=== PATIENT | male | born 1975 | race Caucasian/White ===

== ENCOUNTER 2019-12-28 14:54 | Emergency (ER) | payer OTHER ==
[~2019-12-28 14:54] MED LIST: ZANTAC150 MG PO
[2019-12-28 15:21] LABS: BASO % 0.4 % (0.0-1.0); EOS # 0.3 10*3/uL (0.0-0.4); EOS % 4.4 % (1.0-4.0); HEMATOCRIT 50.9 % (42.0-52.0); LYMPH # 1.6 10*3/uL (1.3-4.4); MEAN CELL VOLUME 82.4 fl (80.0-94.0); MEAN CORPUSCULAR HGB 26.5 pg (27.0-31.0); MEAN CORPUSCULAR HGB CONC 32.2 g/dl (33.0-37.0); MEAN PLATELET VOLUME 8.9 fl (9.6-12.3); MONO # 0.4 10*3/uL (0.1-1.0); MONO % 4.9 % (3.0-9.0); NEUT # 5.2 10*3/uL (2.3-7.9); NEUT % 68.8 % (47.0-73.0); PLATELET COUNT AUTOMATED 267 10*3/uL (130-400); RED BLOOD COUNT 6.18 10*6/uL (4.50-5.90); RED CELL DISTRI WIDTH 12.5 % (0-14.5); WHITE BLOOD COUNT 7.6 10*3/uL (4.8-10.8)
[2019-12-28 15:39] LABS: BUN 13 mg/dl (7-24); CHLORIDE 105 mmol/L (98-107); CREATININE 1.16 mg/dL (0.70-1.30); POTASSIUM 3.8 mmol/L (3.5-5.1); SODIUM 140 mmol/L (136-145)
[2019-12-28] MEDS ORDERED: CLARITIN10 MG PO (16:26)
[2019-12-28] MEDS ORDERED: PEPCID20 MG PO (16:26)
[2019-12-28] MEDS ORDERED: MEDROL DOSEPAK4 MG PO (16:26)
[2019-12-28] MEDS ORDERED: EPIPEN 2-P0.3 MG/0.3 IJ (16:27)
== END 2019-12-28 16:39 | disposition home or self-care (01) ==
LOC: ED 14:54
PROVIDERS: Emergency Medicine
DX: T63.481A Toxic effect of venom of other arthropod, accidental (unintentional), initial encounter (principal); T78.2XXA Anaphylactic shock, unspecified, initial encounter; X58.XXXA Exposure to other specified factors, initial encounter

== ENCOUNTER 2020-04-13 21:23 | Observation (INO) | payer OTHER ==
[~2020-04-13] VITALS: Ht 175.3 cm; Wt 92.2 kg
[~2020-04-13 21:23] MED LIST changes: +CLARITIN10 MG PO; +EPIPEN 2-P0.3 MG/0.3 IJ; +MEDROL DOSEPAK4 MG PO; +PEPCID20 MG PO
[2020-04-13 21:47] VITALS: BP 148/105
[2020-04-13] MEDS ORDERED: SIMVASTATIN40 MG PO (21:48)
[2020-04-13] MEDS ORDERED: LISINOPRIL5 MG PO (21:48)
[2020-04-13 21:51] VITALS: BP 153/98
[2020-04-13 21:59] LABS: BASO # 0.1 10*3/uL (0.0-0.1); BASO % 0.7 % (0.0-1.0); EOS # 0.6 10*3/uL (0.0-0.4); EOS % 5.4 % (1.0-4.0); HEMATOCRIT 53.6 % (42.0-52.0); LYMPH # 2.5 10*3/uL (1.3-4.4); LYMPH % 24.6 % (27.0-41.0); MEAN CORPUSCULAR HGB 27.2 pg (27.0-31.0); MEAN CORPUSCULAR HGB CONC 32.8 g/dl (33.0-37.0); MEAN PLATELET VOLUME 8.7 fl (9.6-12.3); MONO # 0.7 10*3/uL (0.1-1.0); MONO % 6.4 % (3.0-9.0); NEUT # 6.4 10*3/uL (2.3-7.9); NEUT % 62.4 % (47.0-73.0); PLATELET COUNT AUTOMATED 292 10*3/uL (130-400); RED BLOOD COUNT 6.46 10*6/uL (4.50-5.90); RED CELL DISTRI WIDTH 12.8 % (0-14.5); WHITE BLOOD COUNT 10.3 10*3/uL (4.8-10.8)
[2020-04-13 22:10] LABS: ACT PARTIAL THROMBO TIME 29.1 SECONDS (20.0-32.1)
[2020-04-13 22:16] LABS: ALKALINE PHOSPHATASE 77 U/L (45-117); BUN 17 mg/dl (7-24); CHLORIDE 101 mmol/L (98-107); CREATININE 1.18 mg/dL (0.70-1.30); POTASSIUM 3.9 mmol/L (3.5-5.1); SGOT/AST 33 IU/L (3-35); SGPT/ALT 61 U/L (12-78); SODIUM 136 mmol/L (136-145); TOTAL PROTEIN 8.3 gm/dL (6.4-8.2)
[2020-04-13 22:19] LABS: TROPONIN I < 0.015 ng/ml (<0.045)
[2020-04-14 01:01] VITALS: BP 138/89
[2020-04-14 02:00] VITALS: BP 155/97
[2020-04-14 08:00] VITALS: BP 144/90
[2020-04-14 16:00] VITALS: BP 133/67
== END 2020-04-14 16:45 | disposition home or self-care (01) ==
LOC: ED 21:23 → EDHOLD 23:10 → 5E 04-14 00:42
PROVIDERS: Emergency Medicine; ADMIT Internal Medicine; ATTEND Internal Medicine
DX: R07.89 Other chest pain (principal); I10 Essential (primary) hypertension; E78.2 Mixed hyperlipidemia; E78.00 Pure hypercholesterolemia, unspecified; R10.13 Epigastric pain; E66.3 Overweight; Z68.29 Body mass index [BMI] 29.0-29.9, adult; Z98.890 Other specified postprocedural states

== ENCOUNTER 2022-11-09 11:02 | Emergency (ER) | payer BC ==
[~2022-11-09] VITALS: Ht 175.2 cm; Wt 96.6 kg
[~2022-11-09 11:02] MED LIST changes: +LISINOPRIL5 MG PO; +SIMVASTATIN40 MG PO
[2022-11-09] MEDS ORDERED: CRESTOR5 M1 PO (11:46)
[2022-11-09] MEDS ORDERED: LISINOPRIL20 MG PO (11:47)
[2022-11-09 12:42] LABS: HEMATOCRIT 47.8 % (42.0-52.0); MEAN CELL VOLUME 80.3 fl (80.0-94.0); MEAN CORPUSCULAR HGB 26.7 pg (27.0-31.0); MEAN CORPUSCULAR HGB CONC 33.3 g/dl (33.0-37.0); MEAN PLATELET VOLUME 8.7 fl (9.6-12.3); PLATELET COUNT AUTOMATED 201 10*3/uL (130-400); RED BLOOD COUNT 5.95 10*6/uL (4.50-5.90); RED CELL DISTRI WIDTH 13.2 % (0-14.5)
[2022-11-09 12:47] LABS: MANUAL DIFF REFLEX YES
[2022-11-09 13:04] LABS: BASOPHILS 1 % (0-1); PLATELET SUFFICIENCY NORMAL (NORMAL); TOTAL CELLS COUNTED 100 #CELLS
[2022-11-09 13:05] LABS: POLYCHROMASIA SLIGHT
[2022-11-09 13:13] LABS: ALKALINE PHOSPHATASE 70 U/L (46-116); BUN 14 mg/dl (9-23); CHLORIDE 102 mmol/L (98-107); LIPASE 82 U/L (12-53); POTASSIUM 3.5 mmol/L (3.4-5.1); SGPT/ALT 43 U/L (10-49); TOTAL PROTEIN 7.1 gm/dL (6.0-8.0)
[2022-11-09] MEDS ORDERED: CIPRO500 MG PO (13:24)
[2022-11-09] MEDS ORDERED: REGLAN5 MG PO (13:38)
== END 2022-11-09 13:49 | disposition home or self-care (01) ==
LOC: ED 11:02
PROVIDERS: Physician Assistant Medical
DX: K52.89 Other specified noninfective gastroenteritis and colitis (principal); Z98.890 Other specified postprocedural states; E78.00 Pure hypercholesterolemia, unspecified; Z20.822 Contact with and (suspected) exposure to COVID-19

== ENCOUNTER 2024-11-10 05:37 | Emergency (ER) | payer OTHER ==
[~2024-11-10] VITALS: Ht 175.2 cm; Wt 98.9 kg
[~2024-11-10 05:37] MED LIST changes: +CIPRO500 MG PO; +CRESTOR5 M1 PO; +LISINOPRIL20 MG PO; +REGLAN5 MG PO
[2024-11-10] MEDS ORDERED: NAPROSYN500 MG PO (06:45)
== END 2024-11-10 06:50 | disposition home or self-care (01) ==
LOC: ED 05:37
DX: S93.402A Sprain of unspecified ligament of left ankle, initial encounter (principal); E78.00 Pure hypercholesterolemia, unspecified; Z98.890 Other specified postprocedural states; X50.1XXA Overexertion from prolonged static or awkward postures, initial encounter; Y93.89 Activity, other specified; Y92.89 Other specified places as the place of occurrence of the external cause; Y99.8 Other external cause status